=== PATIENT | male | born 1945 | race Asian ===

== ENCOUNTER 2019-01-10 07:32 | Inpatient (IN) | payer MEDICARE ==
[~2019-01-10] VITALS: Ht 170.2 cm; Wt 81.2 kg
[2019-01-10 07:36] VITALS: Ht 170.2 cm; Wt 81.2 kg
--- NOTE | 2019-01-10 07:40 | NUR ---
PER MEDIC WITH [place] [facility] PT HERE FOR SOB THAT STARTED THIS AM. DENIES ANY OTHER S/S INCLUDING CHEST PAIN . PER MEDIC PT WAS EXTREMTLY SOB AND DIAPHORETIC ON SCENE. GAVE 1 NITRO AND BEGAN CPAP. PT ARRIVES WITH MILD SOB. CPAP REMOVED PER DR CARLOS AT BEDSIDE. PT IS ALERT AND ORIENTED WITH ST ON THE DEMAND GENERATOR MANAGER OF 104. R.T. AT BEDSIDE FOR EVAL AND ABG. PT HAS HX OF CHF. +1 PITTING EDEMA ON BILATERAL EXTREMITIES. PT MADARIN SPEAKING BUT HAS SOME ARMENIAN. PT PLACED ON 02 2 LITERS N/C. LAB AT BEDSIDE FOR BLOOD DRAW. WILL CONTINUE TO MONITOR.
--- NOTE | 2019-01-10 07:47 | NUR ---
PT IS ON DIALYSIS AND IS SUPPOSED TO HAVE DIALYSIS TODAY. LAST DIALYSIS ON SAT
--- NOTE | 2019-01-10 07:51 | NUR ---
PT INFORMS ME THAT HE MAKES LITTLE URINE SOMETIMES TWICE A DAY. HX DIALYSIS
[2019-01-10] MEDS ORDERED: LASIX40 MG PO (08:02)
[2019-01-10] MEDS ORDERED: NIFEDIPINE60 MG PO (08:02)
[2019-01-10 08:05] LABS: BASOPHIL % 0.5 % (0-2); PLATELET COUNT 184 x10^3mcL (130-400); RED CELL DISTRIBUTION WIDTH 14.5 % (11.5-14.5)
[2019-01-10 08:15] LABS: ALBUMIN 3.7 g/dL (3.4-5.0); ALKALINE PHOSPHATASE 93 U/L (46-116); ALT/SGPT 27 U/L (16-63); AST/SGOT 23 U/L (15-37); BILIRUBIN TOTAL 0.78 mg/dL (0.20-1.00); CALCIUM 8.8 mg/dL (8.5-10.1); CARBON DIOXIDE 23.2 mmol/L (21-32); CHLORIDE SERUM 98 mmol/L (98-107); GLUCOSE SERUM 158 mg/dL (74-106); POTASSIUM SERUM 4.4 mmol/L (3.5-5.1); SODIUM SERUM 139 mmol/L (136-145)
[2019-01-10 08:28] LABS: CREATININE SERUM 9.4 mg/dL (0.7-1.3)
--- NOTE | 2019-01-10 08:36 | NUR ---
PT SITTING HIGH FOWLERS WITH NO R. DISTRESS AT THIS TIME. PT TOLERATING NC WELL AND 02 SAT 98% ON R.A. VSS AND HR WNL. WILL CONTINUE TO MONITOR
--- NOTE | 2019-01-10 09:46 | NUR ---
RECEIVED ADMISSION ORDERS TO TELE PER DR TAM. PT AWARE AND PREPPED FOR ADMISSION
--- NOTE | 2019-01-10 10:17 | NUR ---
REPORT GIVEN TO ERNIE JOYCE RN
--- NOTE | 2019-01-10 11:10 | NUR ---
ASSUMED CARE OF PATIENT. ALERT AND ORIENTED X4. NO COMPLAINTS OF PAIN OR DISCOMFORT. NO CP. NO SOB. NO APPARENT SIGNS OF DISTRESS. PLEASANT TO INTERACT WITH. CURRENTLY ON 2L VIA NC, SAT APPROXIMATELY 93%. S1, S2 SOUNDS NOTED, PLACED ON TELE MONITOR 12. VERTICAL SCAR NOTED ON CHEST FROM PREVIOUS CARDIAC SURGERY. LUNG SOUNDS CLEAR BILATERALLY, NO ADVENTITIOUS BREATH SOUNDS NOTED. BOWEL SOUNDS ACTIVE IN ALL 4 QUADRANTS. ENDORSING LAST BM 01/09/19. +2 PITTING EDEMA NOTED ON BILATERAL LOWER EXTREMITIES, REPORTS THIS HAS BEEN BASELINE SINCE CARDIAC SURGERY. +2 PULSES PALPABLE IN ALL EXTREMITIES. SKIN CLEAN DRY INTACT. FISTULA NOTED ON LEFT WRIST, BRUIT PALPABLE. BED LOCKED AND IN LOWEST POSITION. CALL LIGHT WITHIN REACH. NONSKID SOCKS IN PLACE. WILL CONTINUE TO MONITOR.
[2019-01-10 11:11] VITALS: BP 127/62
[2019-01-10 11:22] VITALS: BP 152/65
--- NOTE | 2019-01-10 13:12 | NUR ---
TROPONIN LEVEL OF 0.[address]ELBERT TAM
--- NOTE | 2019-01-10 13:25 | NUR ---
PATIENT SEEN RESTING COMFORTABLY IN BED. NO COMPLAINTS OF PAIN OR DISCOMFORT. RESPIRATIONS UNLABORED AND EQUAL. REMAINING ON 2L VIA NC.
[2019-01-10 14:24] VITALS: BP 152/65
--- NOTE | 2019-01-10 18:50 | NUR ---
IV ON RIGHT HAND REMOVED WITH CATHETER INTACT.
--- NOTE | 2019-01-10 18:55 | NUR ---
TROPONIN LEVEL OF 0.458 RECIEVED FROM LAB. PATIENT AWAITING DISHCARGE. AWARE OF ELEVATED TROPONIN LEVELS. NO COMPLAINTS OF PAIN OR DISCOMFORT. NO SOB OR RESPIRATORY DISTRESS. DISCHARGE PAPERWORK SIGNED AND PLACED IN CHART. WILL ENDORSE CARE TO ONCOMING RN.
--- NOTE | 2019-01-10 19:15 | NUR ---
REPORT RECEIVED FROM DAY SHIFT RN. PATIENT WAS SEEN AND IS RESTING COMFORTBALY IN BED WITH AT BEDSIDE. CURRENTLY RECEIVING HD. BREATHING EVEN ON 2L NC. NO SOB OR RESP DISTRESS NOTED. NO IV. IV REMOVED BY DAY SHIFT RN. PATIENT WILL BE DISCHARGED AFTER HD. DISCHARGE PAPERWORK AND EDUCATION DONE BY DAY SHIFT RN. NO C/O PAIN. DENIES CHEST PAIN. ABLE TO MAKE NEEDS KNOWN. COMFORT AND SAFETY MEASURES MAINTAINED. BED IS LOCKED AND IN THE LOWEST POSITION. SIDE RAILS UP X2. CALL LIGHT IS WITHIN REACH. INSTRUCTED TO CALL FOR ASSISTANCE. WILL CONTINUE TO MONITOR.
[2019-01-10 19:40] VITALS: BP 160/80
--- NOTE | 2019-01-10 20:05 | NUR ---
HD COMPLETED. DIAYLSIS NURSE REPORTED 2.5L OUT. BP 160/80, HR 74, T97.4. PATIENT DENIES DIZZINESS. NO C/O PAIN. DENIES CHEST PAIN. PATIENT WS ON 2L NC. REMOVED NC AND ASSESSED O2 SAT ON ROOM AIR. SATING AT 95% ON ROOM AIR. NO DISTRESS NOTED. TELE MONITOR REMOVED. PATIENT LEFT WITH BELONGINGS. NO C/O PAIN. ESCORTED BY CENTRAL OFFICE INSPECTOR VIA WHEELCHAIR. TAKING PRIVATE AUTOMABILE HOME.
== END 2019-01-10 20:05 | disposition home or self-care (01) | DRG 682 ==
LOC: ED 07:32 → DU 09:47
PROVIDERS: Emergency Medicine; ADMIT Internal Medicine Pulmonary Disease
DX: I12.0 Hypertensive chronic kidney disease with stage 5 chronic kidney disease or end stage renal disease (principal); J18.9 Pneumonia, unspecified organism; N18.6 End stage renal disease; J96.01 Acute respiratory failure with hypoxia; E78.5 Hyperlipidemia, unspecified; Z99.2 Dependence on renal dialysis; Z68.29 Body mass index [BMI] 29.0-29.9, adult; Z95.1 Presence of aortocoronary bypass graft; I25.10 Atherosclerotic heart disease of native coronary artery without angina pectoris
CPT/HCPCS: 36600; 83880; J0696; J7030; Q0092

== ENCOUNTER 2019-06-07 08:48 | Inpatient (IN) | payer MEDICARE ==
[~2019-06-07] VITALS: Ht 172.7 cm; Wt 75.5 kg
[~2019-06-07 08:48] MED LIST: LASIX40 MG PO; NIFEDIPINE60 MG PO
[2019-06-07 08:49] VITALS: Ht 172.7 cm; Wt 75.5 kg
[2019-06-07 09:15] LABS: BASOPHIL % 0.3 % (0-2); PLATELET COUNT 193 x10^3mcL (130-400); RED CELL DISTRIBUTION WIDTH 15.2 % (11.5-14.5)
[2019-06-07 09:25] LABS: ALBUMIN 3.6 g/dL (3.4-5.0); ALKALINE PHOSPHATASE 86 U/L (46-116); ALT/SGPT 24 U/L (16-63); AST/SGOT 21 U/L (15-37); BILIRUBIN TOTAL 0.8 mg/dL (0.20-1.00); CALCIUM 9.3 mg/dL (8.5-10.1); CARBON DIOXIDE 23.3 mmol/L (21-32); CHLORIDE SERUM 94 mmol/L (98-107); GLUCOSE SERUM 163 mg/dL (74-106); POTASSIUM SERUM 5.4 mmol/L (3.5-5.1); SODIUM SERUM 136 mmol/L (136-145); TOTAL PROTEIN, SERUM 8.1 g/dL (6.4-8.2)
[2019-06-07 09:47] LABS: CREATININE SERUM 11.9 mg/dL (0.7-1.3)
[2019-06-07] MEDS ORDERED: PREDNISONE20 MG PO (11:03)
[2019-06-07 12:00] VITALS: BP 149/70
[2019-06-07 13:12] VITALS: BP 149/70
[2019-06-07 13:24] VITALS: BP 149/70
[2019-06-07 16:49] VITALS: BP 138/60
[2019-06-08] VITALS (7 sets, daily range): BP systolic 129–179; BP diastolic 60–91
[2019-06-08 11:14] LABS: BASOPHIL % 0.1 % (0-2); PLATELET COUNT 140 x10^3mcL (130-400)
[2019-06-08 11:26] LABS: CALCIUM 8.4 mg/dL (8.5-10.1); CHLORIDE SERUM 99 mmol/L (98-107); GLUCOSE SERUM 118 mg/dL (74-106); POTASSIUM SERUM 5.4 mmol/L (3.5-5.1); SODIUM SERUM 140 mmol/L (136-145)
[2019-06-08 11:27] LABS: RED CELL DISTRIBUTION WIDTH 15.3 % (11.5-14.5)
[2019-06-08 11:30] LABS: CREATININE SERUM 8.7 mg/dL (0.7-1.3)
[2019-06-09 05:30] VITALS: BP 157/76
[2019-06-09 08:36] VITALS: BP 161/76
[2019-06-09 12:40] VITALS: BP 161/79
[2019-06-09 13:04] VITALS: BP 161/79
[2019-06-09 15:31] LABS: CALCIUM 8.4 mg/dL (8.5-10.1); CARBON DIOXIDE 26.1 mmol/L (21-32); CHLORIDE SERUM 97 mmol/L (98-107); GLUCOSE SERUM 273 mg/dL (74-106); SODIUM SERUM 138 mmol/L (136-145)
[2019-06-09 15:49] LABS: CREATININE SERUM 7.8 mg/dL (0.7-1.3)
[2019-06-09 17:40] VITALS: BP 135/70
[2019-06-09 20:56] VITALS: BP 142/64
[2019-06-10 05:53] VITALS: BP 155/69
[2019-06-10 07:53] LABS: PLATELET COUNT 154 x10^3mcL (130-400)
[2019-06-10 08:02] LABS: CALCIUM 8.1 mg/dL (8.5-10.1); CARBON DIOXIDE 29.2 mmol/L (21-32); CHLORIDE SERUM 100 mmol/L (98-107); GLUCOSE SERUM 149 mg/dL (74-106); POTASSIUM SERUM 4.3 mmol/L (3.5-5.1); SODIUM SERUM 141 mmol/L (136-145)
[2019-06-10 08:03] LABS: CREATININE SERUM 6.2 mg/dL (0.7-1.3)
[2019-06-10 08:06] LABS: BASOPHIL % 0 % (0-2); RED CELL DISTRIBUTION WIDTH 15.1 % (11.5-14.5)
[2019-06-10 08:27] VITALS: BP 154/61
[2019-06-10 11:43] VITALS: BP 163/68
[2019-06-10 16:38] VITALS: BP 116/68
[2019-06-10 17:38] VITALS: BP 116/68
== END 2019-06-10 18:41 | disposition home health service (06) | DRG 291 ==
LOC: ED 08:48 → DU 10:33
PROVIDERS: Internal Medicine; ADMIT Internal Medicine Pulmonary Disease
PROC: 5A1D70Z Performance of Urinary Filtration, Intermittent, Less than 6 Hours Per Day (ICD-10-PCS; principal; 2019-06-07)
PROC: 5A1D70Z Performance of Urinary Filtration, Intermittent, Less than 6 Hours Per Day (ICD-10-PCS; 2019-06-08)
PROC: 5A1D70Z Performance of Urinary Filtration, Intermittent, Less than 6 Hours Per Day (ICD-10-PCS; 2019-06-09)
DX: I13.2 Hypertensive heart and chronic kidney disease with heart failure and with stage 5 chronic kidney disease, or end stage renal disease (principal); N18.6 End stage renal disease; J96.00 Acute respiratory failure, unspecified whether with hypoxia or hypercapnia; J44.1 Chronic obstructive pulmonary disease with (acute) exacerbation; R04.2 Hemoptysis; I16.0 Hypertensive urgency; I50.9 Heart failure, unspecified; I25.10 Atherosclerotic heart disease of native coronary artery without angina pectoris; Z99.2 Dependence on renal dialysis; Z68.25 Body mass index [BMI] 25.0-25.9, adult; Z95.1 Presence of aortocoronary bypass graft
CPT/HCPCS: 36600; 83880; G0378; J0696; J2150; J2543; J2930; J7030; J7620; Q0092